=== PATIENT | male | born 1985 | race Asian ===

== ENCOUNTER 2017-06-11 11:18 | Outpatient (CLI) | payer BC ==
[2017-06-11 12:22] LABS: #Lymphocytes 1.7 thou/uL (1.20-3.40); #Monocytes 0.3 thou/uL (0.11-0.59); #Neutrophils 2.8 thou/uL (1.40-6.50); %Basophils 0.6 % (0.0-1.0); %Eosinophils 0.8 % (0.0-10.0); %Lymphocytes 34.7 % (21.0-51.0); %Monocytes 6.2 % (0.0-10.0); Hematocrit 47.8 % (42.0-52.0); Mean Platelet Volume 6.4 fL (7.4-10.4); Red Blood Cell (RBC) Count 5.09 mill/uL (4.70-6.10); White Blood Cell (WBC) Count 4.9 thou/uL (4.8-10.8)
[2017-06-11 12:40] LABS: Anion Gap 10 mmol/L (10-20); BUN (Urea Nitrogen) 10 mg/dL (8.9-20.6); Calc. Creatinine Clearance 0 mL/min (70-130); Calcium 9.9 mg/dL (7.8-10.44); Carbon Dioxide 31 mmol/L (22-29); Chloride 103 mmol/L (98-107); Estimated GFR-MDRD Greater than 90
== END 2017-06-11 11:19 | disposition home or self-care (01) ==
LOC: LABBT 11:18
PROVIDERS: ATTEND Surgery
DX: Z01.812 Encounter for preprocedural laboratory examination (principal); K80.20 Calculus of gallbladder without cholecystitis without obstruction
CPT/HCPCS: 80048; 85025

== ENCOUNTER → 2017-06-14 | Day surgery (SDC) | payer BC ==
[2017-06-11 11:40] VITALS: BMI 21.6
[~2017-06-14] MED LIST: Bupivacaine/Epinephrine 0.25% 30 ML VIAL ONE; CEFAZOLIN/Water 2 GM/20 ML SYRINGE ONE; Fentanyl 100 MCG/2 ML VIAL ONE; Glycopyrrolate 0.2 MG/ML 5 ML SYRINGE ONE; HYDROcodone/Acetaminophen 5/325 mg Tablet ONE; Ketorolac Tromethamine 30 MG/ML VIAL ONE; Lidocaine 1% PF 5 ML VIAL ONE; Meperidine HCl/PF 25 MG/ML VIAL ONE; Midazolam HCl 2 mg/2 ml Vial ONE; Ondansetron HCl/PF 4 MG/2 ML Vial ONE; Propofol 200 MG/20 ML VIAL ONE
--- NOTE | 2017-06-14 09:02 | OP ---
DATE OF PROCEDURE: 06/14/2017 PREOPERATIVE DIAGNOSIS: Symptomatic gallstones. POSTOPERATIVE DIAGNOSIS: Symptomatic gallstones. PROCEDURE: [facility] robotic laparoscopic cholecystectomy. SURGEON: Cornelius Magana M.D. ANESTHESIA: General. ESTIMATED BLOOD LOSS: Minimal. COMPLICATIONS: None. SPECIMEN: Gallbladder. FINDINGS: Chronic cholecystitis. PROCEDURE IN DETAIL: The patient was taken to the operating room and placed supine on the operating table. After general anesthetic was obtained, the abdomen was prepped and draped in a sterile fashio n. Curved incision made below the umbilicus. Cautery was used to dissect down to and score the fasc ia. Abdominal cavity was entered bluntly using a Ivone clamp followed by 12-mm Ethicon trocar. High -flow pneumoperitoneum was obtained. Left and right abdominal 8 mm robot trocars were placed and an hand-assist 5 mm trocars placed in the right upper quadrant. The gallbladder was retracted from the gallbladder fossa. The peritoneum was opened anteriorly and posteriorly. The critical view triangle was seen showing only the cystic duct and cystic artery branching from medial to lateral. There wer e no other branching structures. Two clips were placed proximally on the cystic duct and one distall y. It was cut using the cautery. Cystic artery was taken in the same way. Cautery was used to diss ect the gallbladder out of the gallbladder fossa. The gallbladder was placed in an Endo catch bag an d brought out through the 12-mm trocar site at the end of the procedure. There was no bleeding or bi le in the liver bed. All port sites were infiltrated using local anesthetic. All ports were removed under camera visualization. Pneumoperitoneum was let down. PDS was used to close the fascial defec t below the umbilicus. All incisions were irrigated and closed using 4-0 Monocryl and Dermabond. Th e patient was en route to recovery in stable condition. All instrument counts, needle counts, and la p counts were correct.
== END ==
LOC: SDC 05:39
PROVIDERS: ATTEND Surgery
PROC: 0FT44ZZ Resection of Gallbladder, Percutaneous Endoscopic Approach (ICD-10-PCS; principal; 2017-06-14)
DX: K80.10 Calculus of gallbladder with chronic cholecystitis without obstruction (principal)
CPT/HCPCS: 88304; 96374; J1885; J2001; J2175; J2250; J2405; J2704; J3010